=== PATIENT | female | born 2000 | race Caucasian/White ===

== ENCOUNTER → 2022-12-13 | Outpatient (CLI) | payer MEDICAID, SELFPAY ==
[2022-12-13 11:30] LABS: Absolute Lymphocyte Count 1.74 X10^3/uL (0.83-4.51); Absolute Neutrophil Count 6.6 X10^3/uL (2.0-7.7); Basophil# 0.02 X10^3/uL; Basophil% 0.2 % (0-1); Eosinophil# 0.07 X10^3/uL; Eosinophils% 0.8 % (0-5); Hematocrit 41.9 % (37-47); Hemoglobin 13.6 g/dL (12.0-15.0); Lymphocyte # 1.74 X10^3/ul (0.83-4.51); Lymphocyte % 19.7 % (19-41); Mean Corp Hgb Conc 32.5 g/dL (32-36); Mean Corpuscular Hgb 28.5 pg (27.0-32.0); Mean Corpuscular Volume 87.8 fL (81-99); Mean Platelet Vol. 11.3 fl (6.2-12.0); Monocyte# 0.41 X10^3/uL; Monocyte% 4.6 % (0-10); NRBC Flagged by Analyzer 0 % (0-5); Neutrophil # 6.55 X10^3/uL (2.7-7.7); Neutrophil % 74.4 % (47-70); Platelet Count 223 K/mm3 (150-450); RBC Distribution Width CV 13.2 % (11.6-14.6); RBC Distribution Width SD 42.6 fl (35.1-43.9); Red Blood Count 4.77 M/mm3 (4.2-5.4); White Blood Count 8.8 K/mm3 (4.4-11.0)
[2022-12-13 12:26] LABS: HIV - WCH Non-Reactive (Nonreactive); Hepatitis B Surface Antigen Non-Reactive (Nonreactive); Hepatitis C Antibody Non-Reactive (Nonreactive); Rubella IgG Reactive (Nonreactive); Syphilis Antibodies Non-reactive
[2022-12-15 09:21] LABS: V-Zoster IgG (Immunity) < 135 index (Immune >165)
[2022-12-19 18:35] LABS: HPV Reflexed? NOT INDICATED
== END | disposition home or self-care (01) ==
LOC: WOBLAB 10:20
PROVIDERS: Visit Provider Obstetrics & Gynecology
DX: Z34.81 Encounter for supervision of other normal pregnancy, first trimester (principal)
CPT/HCPCS: 36415; 85025; 86703; 86762; 86780; 86787; 86803; 87086; 87088; 87340; 88175; G0145

== ENCOUNTER → 2023-03-13 | Outpatient (CLI) | payer MEDICAID, SELFPAY ==
[2023-03-13 11:32] LABS: Absolute Lymphocyte Count 1.76 X10^3/uL (0.83-4.51); Absolute Neutrophil Count 6.9 X10^3/uL (2.0-7.7); Basophil# 0.02 X10^3/uL; Basophil% 0.2 % (0-1); Eosinophils% 1.1 % (0-5); Hematocrit 36.4 % (37-47); Hemoglobin 11.8 g/dL (12.0-15.0); Lymphocyte # 1.76 X10^3/ul (0.83-4.51); Mean Corp Hgb Conc 32.4 g/dL (32-36); Mean Corpuscular Hgb 28.8 pg (27.0-32.0); Mean Corpuscular Volume 88.8 fL (81-99); Mean Platelet Vol. 11.6 fl (6.2-12.0); Monocyte# 0.46 X10^3/uL; NRBC Flagged by Analyzer 0 % (0-5); Neutrophil # 6.85 X10^3/uL (2.7-7.7); Neutrophil % 74.2 % (47-70); Platelet Count 214 K/mm3 (150-450); RBC Distribution Width CV 13.3 % (11.6-14.6); RBC Distribution Width SD 43.8 fl (35.1-43.9); White Blood Count 9.2 K/mm3 (4.4-11.0)
[2023-03-13 11:40] LABS: Glucose Challenge Gest 1H 50g 137 mg/dL (70-140)
[2023-03-13 12:00] LABS: Syphilis Antibodies Non-reactive
== END | disposition home or self-care (01) ==
LOC: WOBLAB 10:32
PROVIDERS: Visit Provider Nurse Practitioner Women's Health
DX: Z34.82 Encounter for supervision of other normal pregnancy, second trimester (principal); Z11.3 Encounter for screening for infections with a predominantly sexual mode of transmission
CPT/HCPCS: 36415; 82950; 85025; 86780

== ENCOUNTER → 2023-06-04 | Outpatient (CLI) | payer MEDICAID, SELFPAY ==
[2023-06-04 11:43] LABS: Absolute Lymphocyte Count 1.76 X10^3/uL (0.83-4.51); Absolute Neutrophil Count 7.5 X10^3/uL (2.0-7.7); Basophil# 0.03 X10^3/uL; Basophil% 0.3 % (0-1); Eosinophil# 0.13 X10^3/uL; Eosinophils% 1.3 % (0-5); Hematocrit 39.7 % (37-47); Hemoglobin 12.3 g/dL (12.0-15.0); Lymphocyte # 1.76 X10^3/ul (0.83-4.51); Lymphocyte % 17.5 % (19-41); Mean Corpuscular Hgb 26.7 pg (27.0-32.0); Mean Corpuscular Volume 86.1 fL (81-99); Mean Platelet Vol. 11.8 fl (6.2-12.0); Monocyte# 0.59 X10^3/uL; Monocyte% 5.9 % (0-10); NRBC Flagged by Analyzer 0 % (0-5); Neutrophil # 7.51 X10^3/uL (2.7-7.7); Neutrophil % 74.5 % (47-70); Platelet Count 241 K/mm3 (150-450); RBC Distribution Width CV 13.7 % (11.6-14.6); RBC Distribution Width SD 42.9 fl (35.1-43.9); Red Blood Count 4.61 M/mm3 (4.2-5.4); White Blood Count 10.1 K/mm3 (4.4-11.0)
== END | disposition home or self-care (01) ==
PROVIDERS: Visit Provider Obstetrics & Gynecology
DX: Z34.83 Encounter for supervision of other normal pregnancy, third trimester (principal)
CPT/HCPCS: 36415; 85025; 87081

== ENCOUNTER 2023-06-29 16:30 | Inpatient (IN) | payer MEDICAID, SELFPAY ==
[2023-06-29] VITALS (30 sets, daily range): BP systolic 115–139; BP diastolic 57–73; PULSE 75–106; RESP 18; TEMP 36.8–37.6; O2SAT 86–100; BMI 41.5
[2023-06-29] MEDS: LACTATED RINGERS 500 ML 999 ML IV (17:00)
[2023-06-29] MEDS: Lactated Ringers 1,000 ML 200 ML IV (17:00)
[2023-06-29 17:19] LABS: Absolute Lymphocyte Count 1.44 X10^3/uL (0.83-4.51); Absolute Neutrophil Count 13.1 X10^3/uL (2.0-7.7); Basophil# 0.02 X10^3/uL; Basophil% 0.1 % (0-1); Eosinophil# 0.03 X10^3/uL; Eosinophils% 0.2 % (0-5); Hematocrit 40.3 % (37-47); Hemoglobin 12.9 g/dL (12.0-15.0); Lymphocyte # 1.44 X10^3/ul (0.83-4.51); Lymphocyte % 9.4 % (19-41); Mean Corpuscular Hgb 26.8 pg (27.0-32.0); Mean Corpuscular Volume 83.6 fL (81-99); Mean Platelet Vol. 11.1 fl (6.2-12.0); Monocyte# 0.56 X10^3/uL; Monocyte% 3.7 % (0-10); NRBC Flagged by Analyzer 0 % (0-5); Neutrophil # 13.13 X10^3/uL (2.7-7.7); Neutrophil % 85.9 % (47-70); Platelet Count 281 K/mm3 (150-450); RBC Distribution Width CV 14.6 % (11.6-14.6); RBC Distribution Width SD 43.9 fl (35.1-43.9); Red Blood Count 4.82 M/mm3 (4.2-5.4); White Blood Count 15.3 K/mm3 (4.4-11.0)
[2023-06-29 18:00] LABS: Syphilis Antibodies Non-reactive
[2023-06-29] MEDS: Oxytocin 10 UNITS/ML Vial IM (18:12)
[2023-06-29] MEDS: Oxytocin 15 Units/NS 250ml 15 UNITS/250 ML IV.SOLN 83 UNITS IV (18:19)
--- NOTE | 2023-06-29 18:31 | PCM.HP.BLA ---
History and Physical Date of Admission: 06/29/23 Chief complaint: Contractions History present illness: 22-year-old G1, P0 at 40 weeks and 1 day with GREG 06/28/2023 arrives with contractions. Denies headache, vision change, chest pain, shortness of breath, nausea vomit, right upper quadrant pain. Patient states good movement. is complicated by BMI 41, THC use Obstetric history: G1: Current Past medical history: None Medications: vitamin Allergies: Penicillin Past surgical history: Ankle Family history: Denies history DVT or PE Social history: History of THC use, denies smoking or alcohol use Review of systems: Besides above pertinent positives a full review of systems was performed and found to be negative Physical exam: Vitals: Pulse 91 SPO2 99% on room air General: Normal-appearing no acute distress HEENT: Normocephalic atraumatic no cervical lymphadenopathy Cardiac/respiratory: No use of accessory muscles, nonlabored breathing Abdomen: Soft, nontender, gravid Extremities: No peripheral edema normal peripheral pulses Psych: Normal affect normal demeanor nonpressured speech Labs: White blood cell count 15.3 hemoglobin 12.9 hematocrit 40.3% platelets 281. RPR nonreactive. Blood type a positive antibody negative Assessment plan: Called by nursing that patient sick centimeters dilated given orders for admit labor and delivery. Repeat call from nursing stated patient 9 cm with bulging bag, informed nursing to continue to prepare for epidural in case patient wants epidural and that I am on my way to the hospital. Patient seen and examined. 22-year-old G1, P0 at 40 weeks and 1 day in labor. Arrived to room patient spontaneously ruptured and we prepared for delivery GBS negative. See delivery note
--- NOTE | 2023-06-29 18:34 | EX.PCM.OBRPT ---
Vaginal Delivery Findings Description of Procedure: Normal spontaneous vaginal delivery of a viable male vertex GARY. Head and shoulders delivered with ease. Cord clamped and cut. Baby handed off to patient. Placenta delivered via cord traction and fundal massage. IM and IV oxytocin initiated per protocol. Second-degree midline perineal laceration noted after injection of 1% lidocaine and repaired with 2-0 Vicryl suture in typical fashion. EBL 250 cc Apgars 8/9
[2023-06-29] MEDS: Lidocaine 1% (20 ml mdv) 20 ML Vial INFILT (18:46)
--- NOTE | 2023-06-29 21:35 | NURSING ---
Report received from Karly HEARD, taking over pt care at this time.
[2023-06-29] MEDS: Ibuprofen 600 MG Tablet PO (23:36)
[2023-06-30 04:00] VITALS: BP 102/47; PULSE 66; RESP 18; TEMP 36.6; O2SAT 99
--- NOTE | 2023-06-30 07:37 | PCM.PN.OB ---
Subjective Subjective No overnight complaints Objective Data Objective Data Vital Signs: Vital Signs Temp Pulse Resp BP Pulse Ox O2 Del Method 97.9 F 66 18 102/47 L 99 Room Air 06/30/23 04:00 06/30/23 04:00 06/30/23 04:00 06/30/23 04:00 06/30/23 04:00 06/30/23 04:00 Oxygen Delivery Method Room Air Weight: 241 lb 12.8 oz Body Mass Index (BMI) 41.5 Intake & Output: Intake and Output for Last 24 Hours 06/28/23 06/29/23 06/30/23 23:59 23:59 23:59 Intake Total 899.50 / 899.50 Output Total 350 / 350 500 / 500 Balance 549.50 / 549.50 -500 / -500 Lab / Micro Data 06/29/23 17:00 Labs: Laboratory Results - last 24 hr 06/29/23 17:00: WBC 15.3 H, RBC 4.82, Hgb 12.9, Hct 40.3, MCV 83.6, MCH 26.8 L, MCHC 32.0, RDW Std Deviation 43.9, RDW Coeff of Ave 14.6, Plt Count 281, MPV 11.1, Immature Gran % (Auto) 0.700, Neut % (Auto) 85.9 H, Lymph % (Auto) 9.4 L, [place] % (Auto) 3.7, Eos % (Auto) 0.2, Baso % (Auto) 0.1, Absolute Neuts (auto) 13.1 H, Absolute Lymphs (auto) 1.44, Nucleated RBC % 0, Syphilis Total Ab Non-reactive, Blood Type A POSITIVE, Antibody Screen NEGATIVE Physical Exam Const alert, oriented x3, no apparent distress, average body habitus, healthy appearing and well nourished HEENT normocephalic and moist oral mucous membranes Eyes PERRL Neck full ROM Resp normal respiratory effort, no retractions and no use of accessory muscles GI GI Narrative: Soft, nontender, uterus firm and below umbilicus Extremity normal to inspection and full ROM Neuro moves all extremities, no focal motor deficits and no sensory deficits noted Psych mental status grossly normal, affect normal, speech normal and activity/motor behavior normal Assessment & Plan (1) : PLAN: day 1. Breast feeding. Pain well controlled. Likely home tomorrow
[2023-06-30 09:00] VITALS: BP 116/56; PULSE 87; RESP 16; TEMP 36.2
--- NOTE | 2023-06-30 11:31 | CASEMGMT ---
Social Work Assessment Labor and Delivery Unit [facility] [place] [address] Phone number: [phone] Date of Referral: 06/30/23 Time of Referral:? 410 Referred By: Satish Christina Date of Intervention: ??06/30/23 Time of Intervention:? 1000 Reason for Referral:? Substance use, THC Sw completed chart review and acknowledges social work consult due to maternal substance use during (THC). Sw presented to bedside and introduced self to mother of baby (ROSELINE- Josi). Sw completed psychosocial assessment, provided literature and education on baby blues and depression. Sw also informed MOB of need for sw to make referral to Children's Services due to maternal THC use during . MOB expressed understanding and was engaged in assessment. History obtained from: medical records and mother of baby (MOB) Household composition: MOB reports that she (and now baby) reside with her maternal grandpa. MOB denies any housing issues or concerns. Patient's parent/guardian status:?MOB states that she and father of baby (FOB) Timo Sol (: 10/08/1992) have been in an on again/ off again relationship for three years. MOB states that when she told FOB that she was he made the choice to no longer be together/ involved with baby. MOB states that FOB has two other children that he has sole custody of and she thinks he may be fearful that history will repeat itself with her. MOB stated that when they were together there were no concerns of domestic violence or intimate partner violence. Medical History: ROSELINE is 1, para 0- now 1. ROSELINE received routine care at [facility] throughout her .ROSELINE delivered baby boy, Jose Covarrubias on 06/29/23. Baby was born weighing 7lb 4oz and his apgars were 8 and 9 at one and five minutes of life respectfully. MOB states that she is currently breast feeding (and understands that she cannot smoke THC and breastfeed) and has a pump for at home. Educational Status: MOB reports that she graduated from high school, denies college education. 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 Supplies:? MOB states that she has obtained everything that she needs for baby including: car seat, safe sleep space, clothes, diapers and wipes. Childcare/Caregiver(s):? MOB states that when she needs help with childcare she will be able to get assistance from her mom. Transportation:?? ROSELINE has her drivers license and reliable means of transportation. No transportation barriers at this time. Programs/Agencies Involved: ??ROSELINE is receiving services through [employer]: insurance,WIC and food stamps. MOB states that she was also receiving support and services [facility] throughout her . Children Services/Legal Issues:??? No former involvement, liat informed MOB need for to make referral to [facility] due to maternal substance use during . MOB expressed understanding. Liat called into Children Services and spoke to hotline screenerCait. Behavioral Health Issues: ??Mental Health History: MOB states that she is not aware of any mental health diagnoses that ILAN may have. MOB states that she went to counseling several years ago where she was informed that she has PTSD and anxiety. MOB stated that she has not been prescribed any medications to help with symptoms, she has always been able to manage on her own. Liat educated MOB on signs and symptoms of baby blues and depression. ??? Substance Use History:?MOB stated that she has smoked marijuana for 6 years, and although wanted to quit during her , she had extreme nausea and was unable to eat. MOB states that she would smoke daily, but minimally, not as much as she was prior to her . MOB denies other substances other than marijuana. Family History:?MOB states that her father has a history of abusing pain medications. MOB states that he was recently in a car accident and she thinks that he may be abusing drugs again. MOB stated that no one else in her family has been diagnosed with a mental helth disorder, and does not have a history with substance use. ? Drug Screens: No urine screen observed in MOB chart review. Baby chart indicates that his urine was positive for THC. Family/Social Stressors:? MOB denies any issues or stressors at this time. Support Systems: Maternal grandma, Eulalia, is ROSELINE's biggest support person. MOB states that her grandfather is also a big support for her. Depression/Shaken Baby/Safe Sleeping: Liat reiterated importance of being aware of signs and symptoms of baby blues and depression. Sw provided MOB with literature and symptoms to be on the look out for. Sw educated MOB on shaken baby prevention and ABCs of safe sleep. MOB expressed understanding. ASSESSMENT:? MOB was talkative and receptive to sw involvement and support. MOB expressed understanding for need for sw to make referral to Children's Services due to marijuana use during . MOB connected to resources through [employer] and has all baby items. Safe Plan of Care for infant related to substance use:?MOB states that she does not have any plans on continuing to use marijuana now that PLAN:? ?No other services requested or indicated. MOB and baby to be discharged when medically ready. Ele Logan, [employer] WORK[employer], CHIEF CLINICAL OFFICER
[2023-06-30 12:00] VITALS: BP 137/78; PULSE 81; RESP 16; TEMP 36.6
[2023-06-30] MEDS: Ibuprofen 600 MG Tablet PO (13:13)
--- NOTE | 2023-06-30 14:03 | DCINST_ITS ---
Discharge Instructions Diet Discharge Diet: No restrictions Activity Discharge Activity: Return to Normal Activity, May Drive and May Shower May resume sexual activity in: 6-8 weeks Weight Bearing Status: Weight bearing as tolerated Dressing / Incision Call your doctor if your incision/area has: Continuous Slow Oozing and Foul Smelling Discharge Call your doctor if you observe: Fever of 101 or Higher, Shortness of breath and Chest pain Follow Up Care Please Follow Up With: Satish Christina MD When: 1 week Test Results: Test results from this visit will be discussed in further detail at your follow- up appointment, if applicable. Discharge Plan Admission Admit Date/Time: 06/29/23 16:30 Attending Provider: Satish Christina Primary Care Provider: Care Physician,No Primary Discharge Orders/Prescriptions Prescriptions: No Action PNV #14-[id number] 27 mg iron-1 mg -300 mg-50 mg capsule PO DAILY Referrals / Follow Up: Care Physician,No Primary [Primary Care Provider] - Disposition Discharge Orders: Discharge Patient (Routine); Ordered 06/30/23 Ordered By: Dr. Satish Christina
[2023-06-30 16:30] VITALS: BP 111/62; PULSE 75; RESP 16; TEMP 36.5
[2023-06-30 21:15] VITALS: BP 128/78; PULSE 103; RESP 16; TEMP 37.2
[2023-07-01 02:17] VITALS: BP 130/76; PULSE 90; RESP 18; TEMP 36.6
[2023-07-01] MEDS: Ibuprofen 600 MG Tablet PO ×2 (04:45→13:21)
--- NOTE | 2023-07-01 06:38 | DS.PCM_ITS ---
Discharge Summary Date of Admission: 06/29/23 Date of Discharge: 07/01/23 Summary: Patient arrived in labor on 06/29/2023. Subsequently delivered a 06/29/2023 vaginally. Routine recovery. Discharged home on 07/01/2023 Meaningful Use Info Meaningful Use Diagnoses (Choose all that apply): None applicable Discharge Plan Admission Admit Date/Time: 06/29/23 16:30 Primary Reason for Your Visit: Labor Attending Provider: aStish Christina Primary Care Provider: Care Physician,Berta Primary Instructions Additional Instructions / Restrictions: Regular diet. Weightbearing as tolerated. Okay to shower. No intercourse for 6 to 8 weeks. Call if fevers, chills, chest pain, shortness of breath. Follow- up 1 week visit Discharge Orders/Prescriptions Prescriptions: No Action PNV #14-iron-[id number] 27 mg iron-1 mg -300 mg-50 mg capsule PO DAILY Referrals / Follow Up: Care Physician,No Primary [Primary Care Provider] - Disposition Disposition (needs filled in before D/C Order can be placed): Home, Self Care
--- NOTE | 2023-07-01 06:38 | PCM.PN.OB ---
Subjective Subjective No overnight complaints Objective Data Objective Data Vital Signs: Vital Signs Temp Pulse Resp BP Pulse Ox O2 Del Method 97.9 F 90 18 130/76 H 99 Room Air 07/01/23 02:17 07/01/23 02:17 07/01/23 02:17 07/01/23 02:17 06/30/23 04:00 06/30/23 04:00 Oxygen Delivery Method Room Air Weight: 241 lb 12.8 oz Body Mass Index (BMI) 41.5 Intake & Output: Intake and Output for Last 24 Hours 06/29/23 06/30/23 07/01/23 23:59 23:59 23:59 Intake Total 899.50 / 899.50 Output Total 350 / 350 500 / 500 Balance 549.50 / 549.50 -500 / -500 Lab / Micro Data 06/29/23 17:00 Physical Exam Const alert, oriented x3, no apparent distress, average body habitus, healthy appearing and well nourished HEENT normocephalic and moist oral mucous membranes Eyes PERRL Neck full ROM Resp normal respiratory effort, no retractions and no use of accessory muscles GI GI Narrative: Soft, nontender, uterus firm and below umbilicus Extremity normal to inspection and full ROM Neuro moves all extremities and no focal motor deficits Psych mental status grossly normal, affect normal, speech normal and activity/motor behavior normal Assessment & Plan (1) Vaginal delivery: PLAN: day 2. Breast-feeding. Pain well controlled. Okay to discharge home today
[2023-07-01 08:00] VITALS: BP 118/64; PULSE 74; RESP 16; TEMP 36.6; O2SAT 96
[2023-07-01] MEDS: Benzocaine/Lanolin/Aloe Vera 1 SPRAY EACH TOPICAL (10:33)
[2023-07-01] MEDS: Senna/Docusate Sodium 1 Tablet PO (10:34)
[2023-07-01 13:31] VITALS: BP 125/67; PULSE 94; RESP 16; TEMP 36.7
--- NOTE | 2023-07-09 15:15 | CASEMGMT ---
Social Work Labor and Delivery Sw received mandated rail signal mechanic letter from [facility] from referral that this social services analyst made on 06/30/23 indicating that the referral was screened in and assigned to flare worker: Herlinda Kim ([phone], ext. [phone]) Ele Logan, SALES OPERATIONS ASSOCIATE, POLE TRUCK DRIVER
== END 2023-07-01 14:45 | disposition home or self-care (01) | DRG 560 ==
LOC: WPOUT 16:31 → WP 16:31
PROVIDERS: Admitting Provider Obstetrics & Gynecology; Referring Provider Obstetrics & Gynecology; Visit Provider Obstetrics & Gynecology
DX: O70.1 Second degree perineal laceration during delivery (principal); Z37.0 Single live birth; O99.324 Drug use complicating childbirth; F12.90 Cannabis use, unspecified, uncomplicated; Z3A.40 40 weeks gestation of pregnancy
CPT/HCPCS: 59025; 59050; 85025; 86780; 86850; 86900; 86901; 99221; J7120; G0378